=== PATIENT | female | born 1940 | race Caucasian/White ===

== ENCOUNTER → 2016-04-07 | Outpatient (CLI) | payer MEDICARE, BC ==
--- NOTE | 2016-04-07 16:22 | ECHOF ---
Referral Reason:C50.919 Breast CA Z01.818 Pre Chemo Exposure MEASUREMENTS -------- HEIGHT: 170.2 cm WEIGHT: 86.2 kg BP: RVIDd: 2.0 cm (< 3.3) IVSd: 1.0 cm (0.6 - 1.1) LVIDd: 5.3 cm (3.9 - 5.3) LVPWd: 1.3 cm (0.6 - 1.1) IVSs: 1.0 cm LVIDs: 4.8 cm LVPWs: 1.5 cm LA Diam: 3.6 cm (2.7 - 3.8) LAESV Index (A-L): 26.27 ml/m Ao Diam: 3.1 cm (2.0 - 3.7) AV Cusp: 1.5 cm (1.5 - 2.6) LA Diam: 4.3 cm (2.7 - 3.8) MV EXCURSION: 18.547 mm (> 18.000) MV EF SLOPE: 31 mm/s (70 - 150) EPSS: 1.4 cm MV E Rajiv: 0.38 m/s MV DecT: 236 ms MV A Rajiv: 0.63 m/s MV E/A Ratio: 0.61 FINDINGS -------- Undetermined rhythm. This was a technically adequate study. There is mild concentric left ventricular hypertrophy. Overall left ventricular systolic function is mild-moderately impaired with, an EF between 40 - 45 %. Septal Hypokinesis The right ventricle is normal in size. Normal LA size by volume 22+/-6 ml/m2. The right atrial size is normal. There is mild aortic valve sclerosis. There is no evidence of aortic regurgitation. Mild mitral annular calcification present. Mild mitral regurgitation is present. Mild tricuspid regurgitation present. There is no evidence of pulmonary hypertension. The right ventricular systolic pressure, as measured by Doppler, is {RVSP}. There is no pulmonic regurgitation present. The aortic root size is normal. There is no pericardial effusion. CONCLUSIONS -------- 1. There is mild concentric left ventricular hypertrophy. 2. Overall left ventricular systolic function is mild-moderately impaired with, an EF between 40 - 45 %. 3. Septal Hypokinesis 4. Mild mitral annular calcification present. 5. Mild mitral regurgitation is present. 6. Mild tricuspid regurgitation present. 7. There is no evidence of pulmonary hypertension. 8. The right ventricular systolic pressure, as measured by Doppler, is {RVSP}. WELT TREATER: Teetee Aguilar RDCS
== END | disposition home or self-care (01) ==
LOC: RADECHMAIN 12:52
PROVIDERS: ATTEND Internal Medicine Hematology & Oncology
DX: Z01.818 Encounter for other preprocedural examination (principal); C50.919 Malignant neoplasm of unspecified site of unspecified female breast; I08.1 Rheumatic disorders of both mitral and tricuspid valves
CPT/HCPCS: 93306

== ENCOUNTER → 2016-05-07 | Outpatient (CLI) | payer MEDICARE, BC ==
[2016-05-07 08:55] LABS: Blood Urea Nitrogen 14 mg/dL (7-17); Non-African American GFR(MDRD) >60 (>60 ml/min/1.73 sqM)
--- NOTE | 2016-05-07 10:00 | CT ---
EXAMINATION TYPE: CT brain wo/w con DATE OF EXAM: 05/07/2016 9:29 AM COMPARISON: NONE HISTORY: 75-year-old female with dizziness and history of breast cancer. CT DLP: 2351 mGycm Automated exposure control for dose reduction was used. Technique: CT scan of the head is performed without and with IV Contrast, patient injected with 100 m l mL of Omnipaque 300. 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 There is some stable encephalomalacia along the anterior left middle cranial fossa. Allowing for the metal artifact, no evidence for acute intracranial hemorrhage, acute ischemic change , mass effect, or extra-axial fluid collection. No hydrocephalus. No effacement of cerebral sulci or basal subarachnoid cisterns. Pelaez-white matter differentiation is maintained. There is no abnormal enhancing mass or midline shift identified. Orbits and globes are intact. There is mild mucosal thickening within the posterior left ethmoid air cells and slight leftward nasal septal deviation. Mastoid air cells well pneumatized. IMPRESSION: Stable left temporal craniectomy with aneurysm clipping in the left M1 region. No acute intracranial abnormality seen. No suspicious intracranial enhancing lesions seen.
== END | disposition home or self-care (01) ==
LOC: RADPROMAIN 08:17
PROVIDERS: ATTEND Family Medicine
DX: R42 Dizziness and giddiness (principal); C50.919 Malignant neoplasm of unspecified site of unspecified female breast; Z98.890 Other specified postprocedural states
CPT/HCPCS: 82565; 84520; 70470; 36415; Q9967

== ENCOUNTER → 2016-05-27 | Outpatient (CLI) | payer MEDICARE, BC ==
--- NOTE | 2016-05-27 14:50 | XR ---
EXAMINATION TYPE: XR shoulder complete LT, XR humerus LT DATE OF EXAM: 05/27/2016 12:45 PM CLINICAL HISTORY: Left shoulder and humeral pain. TECHNIQUE: Three views of the left shoulder are obtained. 2 views left humerus are acquired. COMPARISON: None. FINDINGS: Osseous structures are demineralized. There is no acute fracture/dislocation evident in the left shoulder. Some spurring at acromioclavicular joint is present. Distal acromion morphology is un remarkable. Glenohumeral joint is maintained. The visualized ribs are intact and unremarkable. Images of left humerus show no acute fracture or dislocation. Visualized portion of left elbow joint is within normal limits. Overlying soft tissue is unremarkable. IMPRESSION: There is no acute fracture or dislocation in the left humerus or shoulder.
== END | disposition home or self-care (01) ==
LOC: RADXRMAIN 11:56
PROVIDERS: ATTEND Physician Assistant
DX: M79.629 Pain in unspecified upper arm (principal)

== ENCOUNTER → 2016-06-02 | Outpatient (CLI) | payer MEDICARE, BC ==
--- NOTE | 2016-06-02 12:12 | CT ---
EXAMINATION TYPE: CT angio chest DATE OF EXAM: 06/02/2016 10:07 AM COMPARISON: Chest CT November 21, 2014. PET/CT February 14, 2016. HISTORY: SOB. Rule out PE. History of lung cancer. CT DLP: 262.80 mGycm. Automated Exposure Control for Dose Reduction was Utilized. CONTRAST: CTA scan of the thorax is performed with IV Contrast, patient injected with 100 ml mL of Omnipaque 35 0, pulmonary embolism protocol. MIP Images are created on CT scanner and reviewed. FINDINGS: LUNGS: There is moderate to severe underlying emphysematous change redemonstrated. There is apical sc arring bilaterally again seen. There is persistent more nodular scarlike opacity right lung apex gabe uring 1.6 x 1.1 cm on axial image 24 grossly stable from recent PET/CT without definitive abnormal hy permetabolic uptake. Some intralobular septal thickening with linear consolidation in the medial righ t upper lobe is slightly more prominent on current study. There is persistent suspicious nodule or ne oplasm measuring 1.3 x 1.1 cm on axial image 41 unchanged in size from recent PET/CT in the right upp er lobe. There is new small to moderate-sized right pleural effusion extending to lung apex level. Pn eumonias aortic attenuation or groundglass opacity bilaterally suggest mild alveolar edema. No pneumo thorax is seen bilaterally. MEDIASTINUM: There is satisfactory enhancement of the pulmonary artery and its branches, there is no CT evidence for pulmonary embolism. There is abnormal right hilar mass or adenopathy measuring 2.3 x 1.9 cm on axial image 56 without significant hypermetabolic uptake a recent PET/CT. Suspicious right pericarinal lymph node on axial image 51 is less well-defined but likely stable. There is more promi nent subcarinal lymph node on axial image 58 measuring 2.4 x 1.6 cm noted. New small pericardial effu cali is seen superiorly near axial image 69. Coronary artery calcification is redemonstrated. No card iomegaly is seen. There is moderate left atrial and left ventricular dilatation however noted. There is new right internal jugular Mediport catheter which is coiled appearance and tip falls short of the SVC on coronal image 60 before the brachiocephalic confluence. OTHER: Osseous structures are demineralized. Slight underlying scoliotic curvature is present. Large right heterogeneous liver mass or neoplasm measures roughly 8 x 7.1 cm on axial image 130, may be sli ghtly larger in size versus prior PET/CT. New hepatic hypodense foci suspected on axial image 146. IMPRESSION: 1. No CT evidence for pulmonary embolism. 2. Consider CHF exacerbation as there is new mild alveolar edema and small to moderate-sized right pl eural effusion identified. 3. Stable right upper lobe pulmonary nodule or neoplasm. More prominent thoracic adenopathy including right hilar lymph node is felt present. There may be new liver lesions identified. Finding suggest n eoplastic progression. 3. Moderate to severe underlying emphysematous change. Suspect posttreatment change medial right uppe r lobe, developing infiltrate felt less likely but not excluded. 4. New right internal jugular Mediport catheter which is coiled with the tip short of the SVC in the proximal right internal jugular vein, consider repositioning.
== END | disposition home or self-care (01) ==
LOC: RADCTMAIN 08:57
PROVIDERS: ATTEND Internal Medicine Hematology & Oncology
DX: J90 Pleural effusion, not elsewhere classified (principal); J43.9 Emphysema, unspecified; J81.1 Chronic pulmonary edema; Z95.828 Presence of other vascular implants and grafts
CPT/HCPCS: 71275; Q9967

== ENCOUNTER → 2016-06-14 | Outpatient (CLI) | payer MEDICARE, BC ==
--- NOTE | 2016-06-15 12:31 | ECHOF ---
Referral Reason:R06.02 sob MEASUREMENTS -------- HEIGHT: 170.2 cm WEIGHT: 81.7 kg BP: IVSd: 1.1 cm (0.6 - 1.1) LVIDd: 5.7 cm (3.9 - 5.3) LVPWd: 1.2 cm (0.6 - 1.1) IVSs: 1.2 cm LVIDs: 5.1 cm LVPWs: 1.3 cm LA Diam: 4.1 cm (2.7 - 3.8) LAESV Index (A-L): 31.04 ml/m Ao Diam: 3.4 cm (2.0 - 3.7) AV Cusp: 1.9 cm (1.5 - 2.6) LA Diam: 3.9 cm (2.7 - 3.8) MV EXCURSION: 14.914 mm (> 18.000) MV EF SLOPE: 93 mm/s (70 - 150) EPSS: 2.4 cm MV E Rajiv: 0.60 m/s MV DecT: 233 ms MV A Rajiv: 0.54 m/s MV E/A Ratio: 1.12 RAP: 5.00 mmHg RVSP: 22.55 mmHg FINDINGS -------- Sinus rhythm. This was a technically adequate study. Left ventricular wall thickness is normal. There is moderate global hypokinesis of LV . Overall left ventricular systolic function is severely impaired with, an EF between 25 - 30 %. Mitral Doppler inflow pattern suggests diastolic filling abnormality 20.64. The right ventricle is normal in size. LA is moderately dilated 34-39 ml/m2 The right atrial size is normal. There is mild aortic valve sclerosis. There is no evidence of aortic regurgitation. Mild mitral annular calcification present. Moderate mitral regurgitation is present. Mild tricuspid regurgitation present. There is no evidence of pulmonary hypertension. The right ventricular systolic pressure, as measured by Doppler, is 22.55mmHg. There is no pulmonic regurgitation present. The aortic root size is normal. There is no pericardial effusion. CONCLUSIONS -------- 1. Left ventricular wall thickness is normal. 2. The right ventricular systolic pressure, as measured by Doppler, is 22.55mmHg. 3. There is moderate global hypokinesis of LV . 4. Mitral Doppler inflow pattern suggest diastolic filling abnormality 20.64. 5. LA is moderately dilated 34-39 ml/m2 6. There is mild aortic valve sclerosis. 7. Mild mitral annular calcification present. 8. Moderate mitral regurgitation is present. 9. Mild tricuspid regurgitation present. 10. There is no evidence of pulmonary hypertension. [employer]OR [employer]Y TO [employer]: Teetee Aguilar RDCS
== END | disposition home or self-care (01) ==
LOC: RADECHMAIN 13:05
PROVIDERS: ATTEND Internal Medicine Hematology & Oncology
DX: I08.3 Combined rheumatic disorders of mitral, aortic and tricuspid valves (principal)
CPT/HCPCS: 93306

== ENCOUNTER 2016-07-30 17:14 | Emergency (ER) | payer MEDICARE, BC ==
[2016-07-30 17:29] VITALS: TEMP 97.5
[2016-07-30] MEDS ORDERED: SODIUM CHLORIDE 0.9% 1,000 ML IV ONE (17:47)
--- NOTE | 2016-07-30 17:54 | ED ---
General Adult HPI - General Chief complaint: Fall Stated complaint: Fall Time Seen by Provider: 07/30/16 17:24 Source: patient, family, RN notes reviewed Mode of arrival: wheelchair Limitations: no limitations - History of Present Illness Initial comments: Patient is a pleasant 75-year-old female presenting to the emergency department following 2 falls. Patient did have a fall Tuesday and another one Tuesday. It is unclear whether or not patient had a syncopal episode. Patient denies having much pain. Majority of history is taken from the son. Patient has had some difficulty finding words and confusion over the past few days however this seems to be improved yesterday and today. Patient has a history of lung cancer that is in remission. Following this patient does have liver cancer. Patient has been on chemotherapy however is not currently at this time. Unclear if liver cancer is metastasis or primary care - Related Data Home Medications Medication Instructions Recorded Confirmed Fluticasone/Salmeterol [Advair 1 puff INHALATION RT-BID 10/16/14 07/30/16 250-50 Diskus] LORazepam [Ativan] 0.5 mg PO DAILY PRN 10/16/14 07/30/16 Levothyroxine Sodium [Levoxyl] 175 mcg PO QAM 10/16/14 07/30/16 Sertraline [Zoloft] 50 mg PO HS 10/16/14 07/30/16 Ubidecarenone [Co Q-10] 100 mg PO DAILY 10/16/14 07/30/16 Loratadine [Claritin] 10 mg PO DAILY 11/13/14 07/30/16 Olopatadine HCl [Patanol] 1 drop BOTH EYES DAILY PRN 11/13/14 07/30/16 Naproxen Sodium [Aleve] 220 mg PO Q4-6H PRN 01/06/15 07/30/16 HYDROcodone/APAP 10-325MG [[place] 1 tab PO Q6H PRN 07/30/16 07/30/16 10-325] Zolpidem [Ambien] 10 mg PO HS PRN 07/30/16 07/30/16 Allergies Allergy/AdvReac Type Severity Reaction Status Date / Time belladonna alkaloids Allergy Unknown Verified 01/06/15 15:56 cetirizine HCl [From Zyrtec] Allergy Unknown Verified 01/06/15 15:56 clarithromycin [From Biaxin] Allergy Unknown Verified 01/06/15 15:56 Iodinated Contrast Media - Allergy Anaphylaxis Verified 01/06/15 15:56 Oral and [Iodinated Contrast Media - IV Dye] Penicillins Allergy Unknown Verified 01/06/15 15:56 Childhood pregabalin [From Lyrica] Allergy Unknown Verified 01/06/15 15:56 venlafaxine HCl Allergy Unknown Verified 01/06/15 15:56 [From Effexor] codeine AdvReac hyper Verified 01/06/15 15:56 Sulfa (Sulfonamide AdvReac Nausea & Verified 01/06/15 15:56 Antibiotics) Vomiting Review of Systems ROS Statement: Those systems with pertinent positive or pertinent negative responses have been documented in the HPI. ROS Other: All systems not noted in ROS Statement are negative. Constitutional: Denies: fever Eyes: Denies: eye pain ENT: Denies: ear pain Respiratory: Denies: cough Cardiovascular: Denies: chest pain, palpitations Endocrine: Denies: fatigue Gastrointestinal: Reports: abdominal pain (Chronic) Genitourinary: Denies: dysuria Musculoskeletal: Denies: back pain Skin: Denies: rash Neurological: Denies: headache Past Medical History Past Medical History: Cancer, COPD, GERD/Reflux, Hyperlipidemia, Thyroid Disorder Additional Past Medical History / Comment(s): HAS GAINED 40 LBS. SINCE JULY IN ABD. IBS. Breast cancer. lymphedema left leg-wears compression wrap, uses oxygen PRN @2l, hx. double aneurysm behind left eye. History of Any Multi-Drug Resistant Organisms: None Reported Past Surgical History: Breast Surgery, Hernia Repair Additional Past Surgical History / Comment(s): surg. for ectopic , radical mastectomy right, mastectomy left, surgery on aneurysm behind eye, cataract surg. Past Anesthesia/Blood Transfusion Reactions: No Reported Reaction Past Psychological History: Depression Smoking Status: Former smoker Past Alcohol Use History: None Reported Past Drug Use History: None Reported - Past Family History Mother Family Medical History: Cancer General Exam Limitations: no limitations General appearance: alert, in no apparent distress Head exam: Present: other (Right facial ecchymosis and tenderness in the infraorbital region.) Eye exam: Present: normal appearance, PERRL, EOMI ENT exam: Present: normal oropharynx Neck exam: Present: tenderness (Mild tenderness to the mid cervical spine, C3- C4.) Respiratory exam: Present: normal lung sounds bilaterally. Absent: chest wall tenderness Cardiovascular Exam: Present: regular rate, normal rhythm GI/Abdominal exam: Present: soft, tenderness (Mild upper abdominal tenderness). Absent: distended Extremities exam: Present: normal inspection, full ROM. Absent: tenderness Neurological exam: Present: alert, altered, CN II-XII intact. Absent: motor sensory deficit Expanded Patient oriented to: Present: person, place. Absent: time Speech: Present: fluid speech Cranial nerves: EOM's Intact: Normal, Facial Sensation: Normal Sensory exam: Upper Extremity Light Touch: Normal, Lower Extremity Light Touch: Normal Motor strength exam: RUE: 5, LUE: 5, RLE: 5, LLE: 5 Psychiatric exam: Present: normal affect, normal mood Skin exam: Present: other (Rate facial ecchymosis) Course Vital Signs 07/30/16 07/30/16 17:20 18:28 Temperature 97.5 F L Pulse Rate 96 90 Respiratory 18 18 Rate Blood Pressure 169/70 139/64 O2 Sat by Pulse 96 98 Oximetry EKG Findings - EKG Comments: EKG Findings:: Normal sinus rhythm 90. AR 162. QRS 100. QT 386. QTc 472. Left axis. Normal QRS. No acute ST change. Medical Decision Making - Medical Decision Making Case was discussed with at [facility], who will accept transfer. Patient and family were updated. - Lab Data Result diagrams: 07/30/16 18:12 Lab Results 07/30/16 07/30/16 Range/Units 18:12 18:12 Sodium 127 L (137-145) mmol/L Potassium 4.1 (3.5-5.1) mmol/L Chloride 90 L (98-107) mmol/L Carbon Dioxide 30 (22-30) mmol/L Anion Gap 7 mmol/L BUN 21 H (7-17) mg/dL Creatinine 0.56 (0.52-1.04) mg/dL Est GFR (MDRD) Af Amer >60 (>60 ml/min/1.73 sqM) Est GFR (MDRD) Non-Af >60 (>60 ml/min/1.73 sqM) Glucose 65 L (74-99) mg/dL Calcium 10.8 H (8.4-10.2) mg/dL Total Bilirubin 2.2 H (0.2-1.3) mg/dL AST 224 H (14-36) U/L ALT 92 H (9-52) U/L Alkaline Phosphatase 515 H (38-126) U/L Total Creatine Kinase 33 (30-135) U/L Total Protein 6.1 L (6.3-8.2) g/dL Albumin 2.8 L (3.5-5.0) g/dL - Radiology Data Radiology results: image reviewed (Computed tomography scan of the brain shows 3 mm falx cerebri subdural hematoma. Also minimal subdural thickening left into her own. Facial bone fracture of the right cycle medic arch, orbital wall and wall of right maxillary sinus and mandibular ramus. X-ray of the right elbow shows no acute process. Two-view chest x-ray shows no acute process.) Critical Care Time Critical Care Time: Yes Total Critical Care Time: 31 Disposition Clinical Impression: Subdural hematoma, Multiple facial fractures Disposition: OTHER INSTITUTION NOT DEFINED Referrals: Gideon Bolanos MD [Primary Care Provider] - 1-2 days Time of Disposition: 18:02 - Out of Hospital Transfer - Req. Specs Out of Hospital Transfer - Requested Specifics: Other Emergency Center
[2016-07-30 18:50] LABS: Basophils % (A) 0 %; CH 29.6; CHCM 33.1; Eosinophils % (A) 0 %; HCT 37.2 % (34.0-46.0); HDW 2.48; HGB 12.3 gm/dL (11.4-16.0); Luc # (Auto) 0.18; Luc % (Auto) 1; Lymphocytes % (A) 6 %; MCH 29.7 pg (25.0-35.0); Mean Platelet Volume 7.3; Monocytes # (A) 0.6 k/uL (0-1.0); Monocytes % (A) 4 %; Neutrophils # (A) 13.3 k/uL (1.3-7.7); Neutrophils % (A) 88 %; RBC 4.13 m/uL (3.80-5.40); RDW 15.2 % (11.5-15.5); WBC 15.1 k/uL (3.8-10.6); WBC (Perox) 14.25
[2016-07-30 18:59] VITALS: PULSE 90
[2016-07-30 19:04] LABS: ALT 92 U/L (9-52); AST 224 U/L (14-36); Alkaline Phosphatase 515 U/L (38-126); Anion Gap 7 mmol/L; Blood Urea Nitrogen 21 mg/dL (7-17); Calcium 10.8 mg/dL (8.4-10.2); Carbon Dioxide 30 mmol/L (22-30); Chloride 90 mmol/L (98-107); Glucose 65 mg/dL (74-99); Non-African American GFR(MDRD) >60 (>60 ml/min/1.73 sqM); Potassium 4.1 mmol/L (3.5-5.1); Sodium 127 mmol/L (137-145); Total Bilirubin 2.2 mg/dL (0.2-1.3); Total Protein 6.1 g/dL (6.3-8.2)
[2016-07-30 19:07] LABS: INR 1.3 (<1.1); Prothrombin Time 12.8 sec (9.0-12.0)
[2016-07-30 19:15] LABS: Creatine Kinase MB 1.3 ng/mL (0.0-2.4); Troponin I 0.016 ng/mL (0.000-0.034)
[2016-07-30 19:16] LABS: Partial Thromboplastin Time 19.1 sec (22.0-30.0)
--- NOTE | 2016-07-30 19:24 | XR ---
EXAMINATION TYPE: XR pelvis AP view DATE OF EXAM: 07/30/2016 7:09 PM COMPARISON: NONE HISTORY: Pain, fall TECHNIQUE: AP pelvis FINDINGS: No acute fractures are evident. Nonspecific bowel gas is present. Sacroiliac joints and sym physis pubis appear normal. IMPRESSION: 1. Normal AP pelvis
--- NOTE | 2016-07-30 19:37 | CT ---
EXAMINATION TYPE: CT cervical spine wo con DATE OF EXAM: 07/30/2016 6:47 PM COMPARISON: Pain, fall HISTORY: Fall [address] DLP: 560.00 mGycm Automated exposure control for dose reduction was used. TECHNIQUE: CT scan of the cervical spine is obtained without contrast, axial images are obtained, sa gittal and coronal reformatted images are also reviewed. There is some motion artifact present on the wall imaging the cervical spine. FINDINGS: Marked facet hypertrophy is present through multiple levels. This is contributing to severe left and mild right foraminal stenosis C3-4. Severe right and left foraminal stenosis is present C5- C6. Uncovertebral joint hypertrophy is also present at these levels with some endplate changes contri buting to anterior thecal sac compression, slightly greater into the left paracentral region. Uncover tebral joint hypertrophy is present C6-7. Some endplate spurring is present. These are contributing t o mild spinal canal impression and moderate bilateral foraminal stenosis. There is straightening of the cervical spine in the lateral projection. Note is made of emphysematous changes at the lung apices. Nodular density may be present at the right apex measuring 2.1 x 1.4 cm. Series 3 image 93 on lung windows. Diffuse disc space narrowing is present. This is greatest at C5-6 C6-7. Endplate spurring is noted at those levels. Anterior vertebral spurring is also noted at C5-6 and C6-7 levels. No acute fractures are evident. There is straightening of the cervical spine in the lateral projectio n which can be positional. Note is made of a mandibular fracture on the right at the coracoid process. Series 6 image 8 IMPRESSION: 1. No acute cervical spine fracture. 2. Note is made of a fracture of the right mandible coracoid process.
--- NOTE | 2016-07-30 19:48 | CT ---
EXAMINATION TYPE: CT abdomen pelvis wo con DATE OF EXAM: 07/30/2016 6:45 PM COMPARISON: NONE INDICATION: Fall 5 days ago, bruising to right leg. DLP: 937.00 mGycm, Automated exposure control for dose reduction was used. CONTRAST: 0 mL of Omnipaque 300. Study performed without Oral Contrast TECHNIQUE: Axial images were obtained from above the diaphragm to the pubic rami in the axial plane a t 5 mm thick sections. Reconstructed images are reviewed on the computer in the coronal plane. FINDINGS: Limited CT sections are obtained the lung bases. The lung bases are clear. No pneumothorax is evide nt. No hiatal hernia is evident. Minimal pericardial effusion is present. CT ABDOMEN: Fluid is adjacent to the liver and the spleen. Some mesenteric fluid is also present. Mod erate free fluid is within the pelvis. No large organ laceration is identified. Given the history tra hafsa hemorrhage is within the differential. Ascites is also considered. Liver: Normal Spleen: Normal Pancreas: Normal to slightly atrophic Adrenal glands: The adrenal glands are normal. Gallbladder: Surgically absent Kidneys: No masses are evident. No hydronephrosis is present. No cysts are present. There is a 0.3 cm calcification at the inferior pole left kidney. No obstructing renal stones are evident. No addit ional calcifications are evident. Aorta: Vascular calcification is within the aorta. There is mild fusiform prominence of the mid abdo raulito aorta measuring 2.4 cm in AP dimension. Inferior vena cava: Normal. CT PELVIS: The colon appears to have some diffuse wall thickening through the ascending transverse descending to proximal sigmoid colon. Consider colitis. Ischemic change could be considered. Loops of bowel are no ndilated within the oral contrast causing some limitation on the evaluation. There are couple of dive rticuli within the sigmoid colon without evidence of acute diverticulitis. Appendix: Not identified. Couple of small lymph nodes may be in the right lower quadrant. Urinary bladder: Normal as visualized. Genitourinary structures: Uterus appears unremarkable. Adnexal regions are clear. Moderate free fluid is within the pelvis. Please see above discussion. Osseous structures: No suspicious lytic or sclerotic lesions. Sacroiliac joint degenerative changes a nd vacuum phenomenon is present. L5-S1 facet hypertrophy and to a lesser degree L4-5 facet hypertroph y is present. No acute osseous abnormality is evident. IMPRESSIONS: 1. Fluid adjacent to the liver and spleen and within the mesentery as well as some moderate fluid wi thin the pelvis. Given history of trauma, consider hemorrhage within the differential. Ascites could be considered as well. No source for hemorrhage is identified. 2. Possible colitis or ischemic colon changes. Clinical correlation recommended. 3. Diverticulosis without acute diverticulitis.
[2016-07-30 21:33] VITALS: BP 130/64; RESP 20
== END 2016-07-30 20:10 | disposition short-term general hospital (02) ==
LOC: EC 17:14
DX: S06.5X9A Traumatic subdural hemorrhage with loss of consciousness of unspecified duration, initial encounter (principal); S02.631A Fracture of coronoid process of right mandible, initial encounter for closed fracture; S02.81XA Fracture of other specified skull and facial bones, right side, initial encounter for closed fracture; S02.40CA Maxillary fracture, right side, initial encounter for closed fracture; S02.641A Fracture of ramus of right mandible, initial encounter for closed fracture; J44.9 Chronic obstructive pulmonary disease, unspecified; E07.9 Disorder of thyroid, unspecified; F32.9 Major depressive disorder, single episode, unspecified; Z87.891 Personal history of nicotine dependence; Z79.51 Long term (current) use of inhaled steroids; Z79.899 Other long term (current) drug therapy; Z88.0 Allergy status to penicillin; Z88.1 Allergy status to other antibiotic agents; Z88.2 Allergy status to sulfonamides; Z88.5 Allergy status to narcotic agent; Z88.8 Allergy status to other drugs, medicaments and biological substances; Z91.041 Radiographic dye allergy status; Z85.3 Personal history of malignant neoplasm of breast; Z90.11 Acquired absence of right breast and nipple; W10.9XXA Fall (on) (from) unspecified stairs and steps, initial encounter
CPT/HCPCS: 36415; 70150; 70450; 71020; 72125; 72170; 74176; 80053; 82550; 82553; 84484; 85025; 85610; 85730; 93005; 93306; 96360; 96361; 99285

== ENCOUNTER → 2016-07-30 | Outpatient (CLI) | payer MEDICARE, BC ==
--- NOTE | 2016-07-30 16:19 | CT ---
EXAMINATION TYPE: CT brain wo con DATE OF EXAM: 07/30/2016 3:48 PM COMPARISON: 05/07/2016 HISTORY: 75-year-old female with fall 4 days ago, posterior head and facial injuries. TECHNIQUE: Examination was done in axial plane without intravenous contrast. Coronal and sagittal r econstructions performed. CT DLP: 1073.00 mGycm Automated exposure control for dose reduction was used. FINDINGS: There is new trace 3 mm thick subdural hematoma extending from front to back along the falx cerebri. There may be minimal subdural hematoma thickening the left tentorium cerebelli. Otherwise, there is no evidence of acute intracranial hemorrhage, acute ischemic changes, mass, mass-effect, or extra-ax ial fluid collection. There is no effacement of cerebral sulci or basal subarachnoid cisterns. Ther e is no hydrocephalus. There is no midline shift. Pelaez-white matter distinction is preserved. Prior left temporal craniectomy with underlying aneurysm clip and encephalomalacia within the anterio r left temporal lobe. Stable asymmetric smaller frontal horn of the right lateral ventricle. Mild cor tical atrophy is unchanged. Segmental left nasal bone fracture and fractures involving the anterior, posterior, and medial martinez of the right maxillary sinus, right zygomatic arch, lateral wall of the right orbit, visualized right mandibular ramus, and right lateral orbital rim. Some irregularity is also seen involving the floor of the right orbit. Hyperdense material likely hemorrhage opacifies the floor of the right maxillary sinus and there is t racer fluid level in the left maxillary sinus. IMPRESSION: 1. Acute 3 mm thick falcine subdural hematoma. Also, minimal subdural thickening the left tentorium. No mass effect or midline shift. 2. Facial bone fractures. These involve the right zygomatic arch, right orbital wall (lateral wall, l ateral rim, floor), martinez of the right maxillary sinus, and mandibular ramus. Additional segmental fr acture left nasal bone. Findings on the right may represent a ZMC fracture. A Red message has been communicated to Gideon Bolanos MD via the [employer] Critical Result sy stem on 07/30/2016 4:15 PM, Message ID [id number].
--- NOTE | 2016-07-30 16:55 | XR ---
EXAMINATION TYPE: XR chest 2V DATE OF EXAM: 07/30/2016 3:27 PM COMPARISON: 06/02/2016 TECHNIQUE: PA and lateral views submitted. HISTORY: COPD FINDINGS: The lungs are clear and there is no pneumothorax, pleural effusion, or focal pneumonia. Mediport ca theter seen with the tip overlying the region of the right lung apex. Apical pleural thickening and i ncreased right paratracheal soft tissue density noted. There is a 1.5 cm nodule seen overlying the right upper lobe. IMPRESSION: 1. Right-sided Mediport catheter seen with right paratracheal soft tissue density. No overt failure. Correlate clinically. 2 1.5 cm nodule is seen overlying the right upper lobe.
--- NOTE | 2016-07-30 16:56 | XR ---
EXAMINATION TYPE: XR elbow complete RT DATE OF EXAM: 07/30/2016 3:27 PM COMPARISON: NONE HISTORY: Pain FINDINGS: Three views of the elbow demonstrate no pathologic joint effusion. The osseous structures are intact . There is no acute fracture or dislocation. IMPRESSION: 1. No acute fracture or dislocation. If symptoms persist follow-up study in 7 to 10 days could be ob tained.
--- NOTE | 2016-07-30 19:27 | XR ---
EXAMINATION TYPE: XR facial bones complete DATE OF EXAM: 07/30/2016 3:27 PM COMPARISON: NONE HISTORY: Fall, pain TECHNIQUE: 4 view facial bones FINDINGS: Frontal projection is rotated. There is a fracture along the nasal bone on the left. There is an aneurysm clip present on the right. Postsurgical craniotomies present in the right temporal reg ion. Sella is normal. Hyperostosis frontalis internus is present. A blowout fracture is not identified. IMPRESSION: 1. Nasal bone fracture. 2. Postsurgical changes including craniotomy and aneurysm repair
== END | disposition home or self-care (01) ==
LOC: RADCTMAIN 14:30
PROVIDERS: ATTEND Family Medicine
DX: I62.00 Nontraumatic subdural hemorrhage, unspecified (principal); S02.2XXA Fracture of nasal bones, initial encounter for closed fracture; S02.40CA Maxillary fracture, right side, initial encounter for closed fracture; J44.9 Chronic obstructive pulmonary disease, unspecified; R91.1 Solitary pulmonary nodule; T14.8 Other injury of unspecified body region; Z95.828 Presence of other vascular implants and grafts; Z86.79 Personal history of other diseases of the circulatory system; Z98.890 Other specified postprocedural states
CPT/HCPCS: 70150; 70450; 71020

== ENCOUNTER → 2016-07-30 | Outpatient (CLI) | payer MEDICARE, BC ==
--- NOTE | 2016-07-31 10:31 | ECHOF ---
Referral Reason:Breast CA [id number] Post chemo MEASUREMENTS -------- HEIGHT: 170.2 cm WEIGHT: 80.3 kg BP: IVSd: 0.8 cm (0.6 - 1.1) LVIDd: 5.4 cm (3.9 - 5.3) LVPWd: 1.2 cm (0.6 - 1.1) IVSs: 0.8 cm LVIDs: 4.8 cm LVPWs: 1.4 cm Ao Diam: 3.3 cm (2.0 - 3.7) AV Cusp: 1.6 cm (1.5 - 2.6) LA Diam: 2.3 cm (2.7 - 3.8) MV EXCURSION: 48.243 mm (> 18.000) MV EF SLOPE: 56 mm/s (70 - 150) EPSS: 3.4 cm MV E Rajiv: 0.58 m/s MV DecT: 149 ms MV A Rajiv: 0.32 m/s MV E/A Ratio: 1.80 RAP: 5.00 mmHg RVSP: 13.79 mmHg FINDINGS -------- Sinus rhythm. This was a technically good study. There is mild concentric left ventricular hypertrophy. There is severe global hypokinesis of LV . Overall left ventricular systolic function is severely impaired with, an EF < 20%. The right ventricle is normal in size and function. The left atrium is normal in size. The right atrium is normal in size. The aortic valve is trileaflet, and appears structurally normal. No aortic stenosis or regurgitation. The mitral valve leaflets are mildly thickened. There is trace mitral regurgitation. Trace tricuspid regurgitation present. The right ventricular systolic pressure, as measured by Doppler, is 13.79mmHg. The pulmonic valve was not well visualized. The aortic root size is normal. The pericardium is normal. CONCLUSIONS -------- 1. Sinus rhythm. 2. The mitral valve leaflets are mildly thickened. 3. There is trace mitral regurgitation. 4. Trace tricuspid regurgitation present. 5. The right ventricular systolic pressure, as measured by Doppler, is 13.79mmHg. 6. The pulmonic valve was not well visualized. 7. The aortic root size is normal. 8. The pericardium is normal. 9. This was a technically good study. 10. There is mild concentric left ventricular hypertrophy. 11. There is severe global hypokinesis of LV . 12. Overall left ventricular systolic function is severely impaired with, an EF < 20%. 13. The right ventricle is normal in size and function. 14. The left atrium is normal in size. 15. The right atrium is normal in size. 16. The aortic valve is trileaflet, and appears structurally normal. No aortic stenosis or regurgitation. OPHTHALMOLOGY TECHNICIAN: Suzette Denton RDCS
== END | disposition home or self-care (01) ==
LOC: RADECHMAIN 14:37
PROVIDERS: ATTEND Internal Medicine Hematology & Oncology
DX: Z01.810 Encounter for preprocedural cardiovascular examination (principal); C50.919 Malignant neoplasm of unspecified site of unspecified female breast; I08.1 Rheumatic disorders of both mitral and tricuspid valves; R94.39 Abnormal result of other cardiovascular function study
CPT/HCPCS: 93306